=== PATIENT | male | born 1975 ===

== ENCOUNTER 2021-09-03 17:08 | Inpatient (IN) | payer OTHER | END 2021-09-05 11:50 | disposition home or self-care (01) | DRG 871 | LOC: ER 17:08 → PCU 17:09 → MEDS 09-04 13:21 | PROVIDERS: ADMIT Internal Medicine | DX: A40.1 Sepsis due to streptococcus, group B (principal); G92.8 Other toxic encephalopathy; J69.0 Pneumonitis due to inhalation of food and vomit; J96.01 Acute respiratory failure with hypoxia; J15.3 Pneumonia due to streptococcus, group B; B37.7 Candidal sepsis; Z20.822 Contact with and (suspected) exposure to COVID-19; F32.A Depression, unspecified; F41.9 Anxiety disorder, unspecified; G89.29 Other chronic pain; Z79.899 Other long term (current) drug therapy ==

== ENCOUNTER 2022-05-17 14:40 | Inpatient (IN) | payer OTHER ==
[~2022-05-17] VITALS: Ht 180.3 cm; Wt 97.0 kg
[~2022-05-17 14:40] MED LIST changes: -IPRAT-ALBUT 0.5-3 ML INH; -LAMO25 PO; -LEVO750 PO; -MELATONIN5 M1 PO; -NICO21TP TOP; -OLAN10 PO; -OMEP20ER PO
[2022-05-17] MEDS ORDERED: LAMO25 PO (15:54)
[2022-05-17] MEDS ORDERED: OLAN10 PO (15:54)
[2022-05-17] MEDS ORDERED: OMEP20ER PO (15:55)
--- NOTE | 2022-05-17 18:26 | NUR ---
DIRECT ADMIT FROM [facility] Patient admitted for Pneumonia, AOx4. Vitals stable, afebrile, sats stable on RA. Dyspenic, infrequent dry cough noted. Lungs dim at bases. IV ABX administred. Patient vapes daily, Nicotine patch administred. Patient reports hx of spinal fusions and back pain, tylenol given for MAYER & back pain. Patient reports severe reaction to chicken, reports N/V, swelling of throat. No other concerns at this time. Will continue plan of care.
[2022-05-18 05:04] LABS: BASOPHILS ABSOLUTE AUTO 0.11 K/mm3 (0.00-0.23); BASOPHILS PERCENT AUTO 1 % (0-2); EOSINOPHILS ABSOLUTE AUTO 0.41 K/mm3 (0.00-0.68); EOSINOPHILS PERCENT AUTO 3 % (0-6); Hemoglobin 12.5 g/dL (13.5-17.5); IMMATURE GRAN ABSOLUTE AUTO 0.05 K/mm3 (0.00-0.10); IMMATURE GRAN PERCENT AUTO 0 % (0-1); LYMPHOCYTES ABSOLUTE AUTO 2.46 K/mm3 (0.84-5.20); LYMPHOCYTES PERCENT AUTO 17 % (21-46); MONOCYTES ABSOLUTE AUTO 0.81 K/mm3 (0.16-1.47); MONOCYTES PERCENT AUTO 6 % (4-13); Mean Corpuscular HGB 28.2 pg (26.0-34.0); Mean Corpuscular HGB Conc 32.9 g/dL (31.5-36.5); Mean Corpuscular Volume 86 fL (80-100); Mean Platelet Volume 8.7 fL (9.1-12.4); NEUTROPHILS PERCENT AUTO 73 % (41-73); Platelet Count 303 K/mm3 (150-400); RDW Coefficient Variation 15.2 % (11.7-14.2); RDW Standard Deviation 47.7 fL (35.1-46.3); Red Blood Cell Count 4.43 M/mm3 (4.30-5.90); White Blood Cell Count 14.14 K/mm3 (4.00-11.30)
[2022-05-18 05:37] LABS: Albumin, Blood 2.5 g/dL (3.4-5.0); Albumin/Globulin Ratio 0.7 (0.8-1.8); Bilirubin, Total 0.4 mg/dL (0.1-1.0); Bun/Creatinine Ratio 8.3 (12.0-20.0); Creatinine, Blood 1.21 mg/dL (0.60-1.20); Globulin, Blood 3.5 g/dL (2.2-4.0); Magnesium, Blood 1.7 mg/dL (1.6-2.4); Potassium, Blood 3.4 mmol/L (3.5-5.5)
[2022-05-18] MEDS ORDERED: LEVO750 PO (15:55)
[2022-05-18] MEDS ORDERED: IPRAT-ALBUT 0.5-3 ML INH (15:55)
[2022-05-18] MEDS ORDERED: MELATONIN5 M1 PO (15:55)
[2022-05-18] MEDS ORDERED: NICO21TP TOP (15:56)
[2022-05-18] MEDS ORDERED: AMOCLA875 PO (15:56)
--- NOTE | 2022-05-18 18:04 | NUR ---
SHIFT SUMMARY PT A&OX4 AND COOPERATIVE OF CARE. PT HAD ECHO AND MRI TODAY. PT UNABLE TO HAVE BARRIUM TEST TODAY SO STAYING ANOTHER NIGHT TO HAVE TEST DONE TOMORROW. NO C/O PAIN. INDPENDENT IN ROOM. BED IN LOWEST POSITION AND CALL LIGHT IN REACH.
[2022-05-19 05:07] LABS: BASOPHILS ABSOLUTE AUTO 0.11 K/mm3 (0.00-0.23); BASOPHILS PERCENT AUTO 1 % (0-2); EOSINOPHILS ABSOLUTE AUTO 0.63 K/mm3 (0.00-0.68); EOSINOPHILS PERCENT AUTO 6 % (0-6); Hematocrit 40.4 % (37.0-53.0); Hemoglobin 13.3 g/dL (13.5-17.5); IMMATURE GRAN ABSOLUTE AUTO 0.07 K/mm3 (0.00-0.10); IMMATURE GRAN PERCENT AUTO 1 % (0-1); LYMPHOCYTES ABSOLUTE AUTO 2.59 K/mm3 (0.84-5.20); LYMPHOCYTES PERCENT AUTO 26 % (21-46); MONOCYTES ABSOLUTE AUTO 0.83 K/mm3 (0.16-1.47); MONOCYTES PERCENT AUTO 8 % (4-13); Mean Corpuscular HGB 27.9 pg (26.0-34.0); Mean Corpuscular HGB Conc 32.9 g/dL (31.5-36.5); Mean Corpuscular Volume 85 fL (80-100); Mean Platelet Volume 8.9 fL (9.1-12.4); NEUTROPHILS ABSOLUTE AUTO 5.81 K/mm3 (1.96-9.15); NEUTROPHILS PERCENT AUTO 58 % (41-73); Platelet Count 343 K/mm3 (150-400); RDW Coefficient Variation 15.1 % (11.7-14.2); RDW Standard Deviation 46.9 fL (35.1-46.3); Red Blood Cell Count 4.76 M/mm3 (4.30-5.90); White Blood Cell Count 10.04 K/mm3 (4.00-11.30)
[2022-05-19 05:35] LABS: Bun/Creatinine Ratio 8.1 (12.0-20.0); Creatinine, Blood 1.24 mg/dL (0.60-1.20); Potassium, Blood 3.9 mmol/L (3.5-5.5)
--- NOTE | 2022-05-19 16:12 | NUR ---
PT DISCHARGED HOME. DISCHARGE INSCTRUCTIONS AND EDUCATION MATERIAL EXPLAINED TO PT. LIST OF MEDICATIONS REVIEWED WITH PT AND . NO NEW QUESTIONS OR CONCERNS. IV DC'd. ALL BELONGINGS SENT HOME WITH PT. PT ABLE TO WALK WITH TO WAITING VEHICLE.
== END 2022-05-19 16:01 | disposition home or self-care (01) | DRG 871 ==
LOC: MEDS 14:40
PROVIDERS: Hospitalist; ADMIT Family Medicine
DX: A41.9 Sepsis, unspecified organism (principal); J18.9 Pneumonia, unspecified organism; J69.0 Pneumonitis due to inhalation of food and vomit; E87.20 Acidosis, unspecified; N17.9 Acute kidney failure, unspecified; F31.9 Bipolar disorder, unspecified; Z28.21 Immunization not carried out because of patient refusal; F41.9 Anxiety disorder, unspecified; R65.20 Severe sepsis without septic shock; K44.9 Diaphragmatic hernia without obstruction or gangrene; R13.10 Dysphagia, unspecified; R47.1 Dysarthria and anarthria; K21.9 Gastro-esophageal reflux disease without esophagitis; U07.0 Vaping-related disorder; Z98.1 Arthrodesis status; Z88.2 Allergy status to sulfonamides; Z88.8 Allergy status to other drugs, medicaments and biological substances; Z79.899 Other long term (current) drug therapy
CPT/HCPCS: 36415; 70553; 74220; 80048; 80053; 83605; 83735; 84100; 85025; 87449; 92610; 93306; 94640; 94664; 94760; A9270; A9579; J0692; J1200; J1650; J1956; J3475; J7050

== ENCOUNTER → 2022-05-17 | Outpatient (CLI) | payer OTHER ==
[~2022-05-17] MED LIST: ALPR.5 PO; AMOCLA875 PO; AZIT250 PO; BUSPIRONE HCL PO; CYCL10 PO; GUAI600T33 PO; HYDACE25S PR; IPRAT-ALBUT 0.5-3 ML INH; LAMO25 PO; LEVO750 PO; MELATONIN5 M1 PO; NICO21TP TOP; OLAN10 PO; OMEP20ER PO; Prozac20 MG PO; QUET25 PO; Seroquel Xr50 MG PO; TRAM50 PO
[2022-05-17 12:41] LABS: BASOPHILS ABSOLUTE AUTO 0.09 K/mm3 (0.00-0.23); BASOPHILS PERCENT AUTO 1 % (0-2); EOSINOPHILS ABSOLUTE AUTO 0.18 K/mm3 (0.00-0.68); EOSINOPHILS PERCENT AUTO 1 % (0-6); Hematocrit 45.3 % (37.0-53.0); Hemoglobin 14.6 g/dL (13.5-17.5); IMMATURE GRAN ABSOLUTE AUTO 0.07 K/mm3 (0.00-0.10); IMMATURE GRAN PERCENT AUTO 0 % (0-1); LYMPHOCYTES ABSOLUTE AUTO 0.95 K/mm3 (0.84-5.20); LYMPHOCYTES PERCENT AUTO 5 % (21-46); MONOCYTES ABSOLUTE AUTO 0.92 K/mm3 (0.16-1.47); MONOCYTES PERCENT AUTO 5 % (4-13); Mean Corpuscular HGB Conc 32.2 g/dL (31.5-36.5); Mean Corpuscular Volume 87 fL (80-100); Mean Platelet Volume 8.8 fL (9.1-12.4); NEUTROPHILS PERCENT AUTO 88 % (41-73); Platelet Count 403 K/mm3 (150-400); RDW Coefficient Variation 15.1 % (11.7-14.2); RDW Standard Deviation 47.9 fL (35.1-46.3); Red Blood Cell Count 5.22 M/mm3 (4.30-5.90); White Blood Cell Count 18.61 K/mm3 (4.00-11.30)
[2022-05-17 12:51] LABS: Albumin, Blood 3.2 g/dL (3.4-5.0); Albumin/Globulin Ratio 0.8 (0.8-1.8); Bilirubin, Total 0.3 mg/dL (0.1-1.0); Bun/Creatinine Ratio 6.2 (12.0-20.0); Calcium, Blood 8.7 mg/dL (8.5-10.1); Creatinine, Blood 1.62 mg/dL (0.60-1.20); Globulin, Blood 4.1 g/dL (2.2-4.0); Potassium, Blood 4.1 mmol/L (3.5-5.5); Total Protein, Blood 7.3 g/dL (6.4-8.2)
== END | disposition home or self-care (01) ==
LOC: LAB SHORT 12:32
PROVIDERS: Physician Assistant
DX: J18.9 Pneumonia, unspecified organism (principal)
CPT/HCPCS: 80053; 83605; 85025

== ENCOUNTER → 2023-02-11 | Outpatient (CLI) | payer OTHER ==
[~2023-02-11] MED LIST changes: +IPRAT-ALBUT 0.5-3 ML INH; +LAMO25 PO; +LEVO750 PO; +MELATONIN5 M1 PO; +NICO21TP TOP; +OLAN10 PO; +OMEP20ER PO
[2023-02-14 16:19] LABS: APTIMA MEDIA TYPE Urine; C. TRACHOMATIS BY TMA Negative (Negative); N. GONORRHOEAE BY TMA Negative (Negative); SPECIMEN SOURCE Urine; T. VAGINALIS BY TMA Negative (Negative)
== END ==
LOC: LAB SHORT 18:29 → LAB 18:29
PROVIDERS: Physician Assistant
DX: Z20.9 Contact with and (suspected) exposure to unspecified communicable disease (principal)
CPT/HCPCS: 87491; 87591; 87661

== ENCOUNTER 2024-08-13 19:34 | Observation (INO) | payer OTHER ==
[~2024-08-13] VITALS: Ht 180.3 cm; Wt 88.6 kg
[2024-08-13] MEDS ORDERED: Ketorolac Tromethamine 15mg Vial IV ONE (20:05)
[2024-08-13 21:04] LABS: BASOPHILS ABSOLUTE AUTO 0.07 K/mm3 (0.00-0.23); BASOPHILS PERCENT AUTO 1 % (0-2); EOSINOPHILS ABSOLUTE AUTO 0.34 K/mm3 (0.00-0.68); EOSINOPHILS PERCENT AUTO 3 % (0-6); Hematocrit 47.5 % (37.0-53.0); Hemoglobin 15.7 g/dL (13.5-17.5); IMMATURE GRAN ABSOLUTE AUTO 0.06 K/mm3 (0.00-0.10); IMMATURE GRAN PERCENT AUTO 1 % (0-1); LYMPHOCYTES ABSOLUTE AUTO 1.35 K/mm3 (0.84-5.20); LYMPHOCYTES PERCENT AUTO 11 % (21-46); MONOCYTES ABSOLUTE AUTO 0.87 K/mm3 (0.16-1.47); MONOCYTES PERCENT AUTO 7 % (4-13); Mean Corpuscular HGB Conc 33.1 g/dL (31.5-36.5); Mean Corpuscular Volume 88 fL (80-100); Mean Platelet Volume 8.5 fL (9.1-12.4); NEUTROPHILS ABSOLUTE AUTO 10.06 K/mm3 (1.96-9.15); NEUTROPHILS PERCENT AUTO 79 % (41-73); Platelet Count 436 K/mm3 (150-400); RDW Coefficient Variation 19.4 % (11.7-14.2); RDW Standard Deviation 57.7 fL (35.1-46.3); Red Blood Cell Count 5.42 M/mm3 (4.30-5.90); White Blood Cell Count 12.75 K/mm3 (4.00-11.30)
[2024-08-13 21:25] LABS: Albumin, Blood 2.7 g/dL (3.4-5.0); Albumin/Globulin Ratio 0.5 (0.8-1.8); Bilirubin, Total 1.1 mg/dL (0.1-1.0); Bun/Creatinine Ratio 9.6 (12.0-20.0); Calcium, Blood 8.9 mg/dL (8.5-10.1); Creatinine, Blood 1.14 mg/dL (0.60-1.20); Globulin, Blood 5.2 g/dL (2.2-4.0); Potassium, Blood 2.7 mmol/L (3.5-5.5); Total Protein, Blood 7.9 g/dL (6.4-8.2)
[2024-08-13 22:10] LABS: International Normalized Ratio 1.1
[2024-08-13] MEDS ORDERED: Potassium Chloride 20 MEQ TabCR PO ONE (22:10)
[2024-08-13] MEDS ORDERED: Potassium Chloride 40 MEQ in NS 250 ML IV ONE (22:10)
[2024-08-13] MEDS ORDERED: NS 1,000 ML IV SCH (22:35)
[2024-08-13] MEDS ORDERED: FentaNYL Citrate 50 MCG/ML 2 ML Injection IV PRN (23:20)
[2024-08-13] MEDS ORDERED: Heparin Sodium,Porcine/0.5 NS 500 ML IV SCH (23:45)
[2024-08-14 01:47] VITALS: BP 146/99
--- NOTE | 2024-08-14 02:27 | NUR ---
PATIENT IS A NEW ADMIT FROM THE ED. ALERT ORIENTED AND INDEPENDENT TRANSFER FROM [facility] TO BED. DENIES CHEST PAIN, SOB, AND N/V. ON ROOM AIR. IV K+ INFUSING FROM THE ED. IV HEPARIN STARTED @ 32mL/HR VERIFIED WITH 2ND RN AND MANAGED BY PHARMACY. LEFT CALF SWELLING WITH PEDAL PULSES FELT BILATERALLY AND MARKED WITH X IN ED. ORIENTED TO ROOM AND CALL LIGHT SYSTEM. FOOD PROVIDED PER DIET ORDER. WCTM.
[2024-08-14 04:43] LABS: Hematocrit 42.4 % (37.0-53.0); Mean Platelet Volume 8.6 fL (9.1-12.4); Platelet Count 366 K/mm3 (150-400)
[2024-08-14 04:44] VITALS: BP 122/77
[2024-08-14 05:23] LABS: Calcium, Blood 7.9 mg/dL (8.5-10.1); Potassium, Blood 3.4 mmol/L (3.5-5.5)
[2024-08-14 07:57] VITALS: BP 119/73
[2024-08-14] MEDS ORDERED: Dose Adjust by Pharmacy XX STA ×3 (09:08→23:35)
--- NOTE | 2024-08-14 09:50 | NUR ---
MD CONTACT NOTIFIED MD THAT PATIENT CONTINUES WITH PAIN, ONE MORE DOSE OF FENTANYL AVAILABLE AND NO ORDER FOR PAIN MEDICATIONS AFTER THAT. DR. MEDEROS STATES WILL COME SEE PATIENT SOON.
[2024-08-14] MEDS ORDERED: OxyCODONE HCL 5 MG TAB PO PRN (11:45)
[2024-08-14] MEDS ORDERED: Ondansetron HCl 2 MG / ML 2ML Vial IV PRN (12:15)
[2024-08-14] MEDS ORDERED: Acetaminophen 325 MG TABLET PO PRN (12:15)
[2024-08-14 15:02] VITALS: BP 107/61
[2024-08-14] MEDS ORDERED: Potassium Chloride 20 MEQ TabCR PO SCH (18:00)
--- NOTE | 2024-08-14 18:08 | NUR ---
SHIFT SUMMARY PATIENT A/OX4, ABLE TO MAKE NEEDS KNOWN. PLEASANT ADN COOPERATIVE WITH CARE. TELEMETRY IN PLACE, NO EVENTS NOTED, SINUS RHYTHYM. ECHOCARDIOGRAM PERFORMED TODAY. POTASSIUM REPLACED PER APR. HEPARIN GTT INCREASED X2 THIS SHIFT, RUNNING PER APR. PRN OXYCODONE ORDERED FOR PAIN TO LEFT LEG DVT PAIN, EFFECTIVE IN PAIN MANAGEMENT. PATIENT COMPLAINING OF NAUSEA, PRN ZOFRAN ADMINISTERED PER APR. PATIENT REMAINS INDEPENDENT IN ROOM. NO OTHER CONCERNS AT THIS TIME.
[2024-08-14 19:27] VITALS: BP 148/82
[2024-08-15 04:00] VITALS: BP 151/88
[2024-08-15 05:26] LABS: BASOPHILS ABSOLUTE AUTO 0.09 K/mm3 (0.00-0.23); BASOPHILS PERCENT AUTO 1 % (0-2); EOSINOPHILS ABSOLUTE AUTO 0.42 K/mm3 (0.00-0.68); EOSINOPHILS PERCENT AUTO 5 % (0-6); Hematocrit 39.5 % (37.0-53.0); Hemoglobin 12.9 g/dL (13.5-17.5); IMMATURE GRAN ABSOLUTE AUTO 0.08 K/mm3 (0.00-0.10); IMMATURE GRAN PERCENT AUTO 1 % (0-1); LYMPHOCYTES PERCENT AUTO 23 % (21-46); MONOCYTES ABSOLUTE AUTO 0.58 K/mm3 (0.16-1.47); MONOCYTES PERCENT AUTO 6 % (4-13); Mean Corpuscular HGB 29.3 pg (26.0-34.0); Mean Corpuscular HGB Conc 32.7 g/dL (31.5-36.5); Mean Corpuscular Volume 90 fL (80-100); Mean Platelet Volume 8.9 fL (9.1-12.4); NEUTROPHILS ABSOLUTE AUTO 5.92 K/mm3 (1.96-9.15); NEUTROPHILS PERCENT AUTO 64 % (41-73); Platelet Count 328 K/mm3 (150-400); RDW Coefficient Variation 18.5 % (11.7-14.2); White Blood Cell Count 9.19 K/mm3 (4.00-11.30)
[2024-08-15 05:44] LABS: Albumin, Blood 2.2 g/dL (3.4-5.0); Albumin/Globulin Ratio 0.6 (0.8-1.8); Bilirubin, Total 0.5 mg/dL (0.1-1.0); Bun/Creatinine Ratio 7.9 (12.0-20.0); Calcium, Blood 7.6 mg/dL (8.5-10.1); Creatinine, Blood 1.01 mg/dL (0.60-1.20); Globulin, Blood 3.9 g/dL (2.2-4.0); Total Protein, Blood 6.1 g/dL (6.4-8.2)
[2024-08-15] MEDS ORDERED: Dose Adjust by Pharmacy XX STA (06:16)
--- NOTE | 2024-08-15 06:36 | NUR ---
Shift Summary No acute changes. Given PRN oxycodone for L DVT pain and zofran x1 for nausea. Pt is on tele, no events, SR in the 80s. Pt was awake for most of the night. Pt AOx4, independent, VSS.
[2024-08-15 07:34] VITALS: BP 129/88
[2024-08-15] MEDS ORDERED: Potassium Chloride 20 MEQ TabCR PO SCH (11:00)
[2024-08-15] MEDS ORDERED: Apixaban 5 MG Tab PO SCH ×2 (11:00→12:06)
[2024-08-15 11:10] VITALS: BP 131/80
[2024-08-15] MEDS ORDERED: Apixaban 5 MG Tab PO ONE (12:05)
[2024-08-15] MEDS ORDERED: ELIQUIS5 M2 PO (13:57)
[2024-08-15] MEDS ORDERED: OXYC5 PO (13:58)
[2024-08-15] MEDS ORDERED: POTCHL20ER PO (13:58)
--- NOTE | 2024-08-15 14:50 | NUR ---
DISCHARGE NOTE PATIENT A/OX4, ABLE TO MAKE NEEDS KNOWN. PLEASANT AND COOPERATIVE WITH STAFF. INDEPENDENT IN ROOM HEPARIN GTT DISCONTINUED THIS MORNING AND PATITN STARTED ON ELIQUIS. OXYCODONE ADMINISTERED PER MAR FOR PAIN TO LEFT LEG DVT. TELEMETRY REMOVED AND IV REMOVED PRIOR TO DISCHARGE. PATIENT AGREEBALE TO DISCHARGE PLAN, MEDICATIONS DISCUSSED AND FOLLOW UP APPOINTMENTS DISCUSSED. NO OTHER CONCERNS. PATIENT ASSISTED TO FAMILY VEHICLE VIA WHEELCHAIR BY [facility] STAFF.
== END 2024-08-15 14:35 | disposition home or self-care (01) ==
LOC: ER 19:34 → MEDS 19:35
PROVIDERS: Emergency Medicine; Internal Medicine; Student in an Organized Health Care Education/Training Program; ADMIT Internal Medicine
DX: I82.4Z2 Acute embolism and thrombosis of unspecified deep veins of left distal lower extremity (principal); I26.99 Other pulmonary embolism without acute cor pulmonale; E87.6 Hypokalemia; F31.9 Bipolar disorder, unspecified; G47.33 Obstructive sleep apnea (adult) (pediatric); Z79.01 Long term (current) use of anticoagulants; Z79.899 Other long term (current) drug therapy
CPT/HCPCS: 36415; 71260; 80048; 80053; 83880; 84484; 85014; 85018; 85025; 85049; 85520; 85610; 85730; 93005; 93010; 93306; 93925; 93971; 96365; 96366; 96374-59; 96375; 96376; 99285-25; A9270; G0378; J1644; J1885; J2405; J3010; J3480; J7030; J7050; Q9967

== ENCOUNTER 2024-10-09 09:17 | Emergency (ER) | payer OTHER ==
[~2024-10-09] VITALS: Ht 180.3 cm; Wt 90.7 kg
[~2024-10-09 09:17] MED LIST changes: +ELIQUIS5 M2 PO; +OXYC5 PO; +POTCHL20ER PO
[2024-10-09 11:28] LABS: BASOPHILS ABSOLUTE AUTO 0.11 K/mm3 (0.00-0.23); BASOPHILS PERCENT AUTO 1 % (0-2); EOSINOPHILS ABSOLUTE AUTO 1.15 K/mm3 (0.00-0.68); EOSINOPHILS PERCENT AUTO 11 % (0-6); Hematocrit 42.4 % (37.0-53.0); Hemoglobin 13.8 g/dL (13.5-17.5); IMMATURE GRAN ABSOLUTE AUTO 0.06 K/mm3 (0.00-0.10); IMMATURE GRAN PERCENT AUTO 1 % (0-1); LYMPHOCYTES ABSOLUTE AUTO 1.81 K/mm3 (0.84-5.20); LYMPHOCYTES PERCENT AUTO 17 % (21-46); MONOCYTES ABSOLUTE AUTO 0.63 K/mm3 (0.16-1.47); MONOCYTES PERCENT AUTO 6 % (4-13); Mean Corpuscular HGB Conc 32.5 g/dL (31.5-36.5); Mean Corpuscular Volume 89 fL (80-100); NEUTROPHILS ABSOLUTE AUTO 6.74 K/mm3 (1.96-9.15); NEUTROPHILS PERCENT AUTO 64 % (41-73); NRBC ABSOLUTE 0.00 K/mm3 (0.00-0.02); NRBC Auto 0.0 /100 WBC (0.0-0.2); Platelet Count 464 K/mm3 (150-400); RDW Coefficient Variation 17.5 % (11.7-14.2); RDW Standard Deviation 57.4 fL (35.1-46.3)
[2024-10-09 11:37] LABS: Prothrombin Time Results 11.2 Sec (9.7-11.5)
[2024-10-09 12:21] LABS: Alanine Aminotransfer (ALT/SGP 30.0 U/L (12-78); Albumin, Blood 3.0 g/dL (3.4-5.0); Albumin/Globulin Ratio 0.6 (0.8-1.8); Anion Gap 7.0 mmol/L (3-11); Aspartate Aminotrans (AST/SGOT 26.0 U/L (12-37); Bilirubin, Total 0.7 mg/dL (0.1-1.0); Blood Urea Nitrogen 11.0 mg/dL (8-24); CO2, Blood 26.0 mmol/L (21-32); Calcium, Blood 8.2 mg/dL (8.5-10.1); Chloride, Blood 108.0 mmol/L (98-108); Creatinine, Blood 1.13 mg/dL (0.60-1.20); Globulin, Blood 5.0 g/dL (2.2-4.0); Glucose, Blood 103.0 mg/dL (70-99); Potassium, Blood 3.9 mmol/L (3.5-5.5); Sodium, Blood 137.0 mmol/L (136-145); Total Protein, Blood 8.0 g/dL (6.4-8.2)
[2024-10-09 12:30] VITALS: BP 150/106
[2024-10-09] MEDS ORDERED: OXAYDO5 M1 PO (15:21)
== END 2024-10-09 12:43 | disposition home or self-care (01) ==
LOC: ER 09:17
PROVIDERS: Student in an Organized Health Care Education/Training Program
DX: I82.512 Chronic embolism and thrombosis of left femoral vein (principal); I82.532 Chronic embolism and thrombosis of left popliteal vein; I82.542 Chronic embolism and thrombosis of left tibial vein; I82.552 Chronic embolism and thrombosis of left peroneal vein; Z79.01 Long term (current) use of anticoagulants; Z88.8 Allergy status to other drugs, medicaments and biological substances; Z79.02 Long term (current) use of antithrombotics/antiplatelets; Z79.899 Other long term (current) drug therapy
CPT/HCPCS: 80053; 85025; 85610; 85730; 93005; 93010; 93971; 99284-25; A9270

== ENCOUNTER 2024-11-01 01:05 | Emergency (ER) | payer OTHER ==
[~2024-11-01] VITALS: Ht 180.3 cm; Wt 99.8 kg
[~2024-11-01 01:05] MED LIST changes: +OXAYDO5 M1 PO
[2024-11-01 01:49] LABS: BASOPHILS ABSOLUTE AUTO 0.09 K/mm3 (0.00-0.23); BASOPHILS PERCENT AUTO 1 % (0-2); EOSINOPHILS ABSOLUTE AUTO 0.62 K/mm3 (0.00-0.68); EOSINOPHILS PERCENT AUTO 9 % (0-6); Hematocrit 40.7 % (37.0-53.0); Hemoglobin 13.1 g/dL (13.5-17.5); IMMATURE GRAN ABSOLUTE AUTO 0.05 K/mm3 (0.00-0.10); IMMATURE GRAN PERCENT AUTO 1 % (0-1); LYMPHOCYTES ABSOLUTE AUTO 1.49 K/mm3 (0.84-5.20); LYMPHOCYTES PERCENT AUTO 21 % (21-46); MONOCYTES ABSOLUTE AUTO 0.81 K/mm3 (0.16-1.47); MONOCYTES PERCENT AUTO 12 % (4-13); Mean Corpuscular HGB Conc 32.2 g/dL (31.5-36.5); Mean Corpuscular Volume 89 fL (80-100); NEUTROPHILS ABSOLUTE AUTO 3.90 K/mm3 (1.96-9.15); NEUTROPHILS PERCENT AUTO 56 % (41-73); NRBC ABSOLUTE 0.00 K/mm3 (0.00-0.02); NRBC Auto 0.0 /100 WBC (0.0-0.2); Platelet Count 210 K/mm3 (150-400); RDW Coefficient Variation 17.9 % (11.7-14.2); RDW Standard Deviation 58.2 fL (35.1-46.3)
[2024-11-01 01:55] LABS: Alanine Aminotransfer (ALT/SGP 90.0 U/L (12-78); Albumin, Blood 2.8 g/dL (3.4-5.0); Albumin/Globulin Ratio 0.7 (0.8-1.8); Anion Gap 9.0 mmol/L (3-11); Aspartate Aminotrans (AST/SGOT 115.0 U/L (12-37); Bilirubin, Total 0.5 mg/dL (0.1-1.0); Blood Urea Nitrogen 11.0 mg/dL (8-24); CO2, Blood 22.0 mmol/L (21-32); Calcium, Blood 7.6 mg/dL (8.5-10.1); Chloride, Blood 109.0 mmol/L (98-108); Creatinine, Blood 1.1 mg/dL (0.60-1.20); Globulin, Blood 4.0 g/dL (2.2-4.0); Glucose, Blood 112.0 mg/dL (70-99); Potassium, Blood 3.4 mmol/L (3.5-5.5); Sodium, Blood 137.0 mmol/L (136-145); Total Protein, Blood 6.8 g/dL (6.4-8.2)
[2024-11-01 06:00] VITALS: BP 139/94
== END 2024-11-01 07:20 | disposition home or self-care (01) ==
LOC: ER 01:05
PROVIDERS: Student in an Organized Health Care Education/Training Program
DX: I27.82 Chronic pulmonary embolism (principal); R06.02 Shortness of breath; Z79.899 Other long term (current) drug therapy; Z88.8 Allergy status to other drugs, medicaments and biological substances
CPT/HCPCS: 71046; 71260; 80053; 84484; 85025; 99285-25; A9270; Q9967

== ENCOUNTER 2024-11-06 09:28 | Observation (INO) | payer OTHER ==
[~2024-11-06] VITALS: Ht 177.8 cm; Wt 92.8 kg
[2024-11-06 11:21] LABS: BASOPHILS ABSOLUTE AUTO 0.09 K/mm3 (0.00-0.23); BASOPHILS PERCENT AUTO 1 % (0-2); EOSINOPHILS ABSOLUTE AUTO 0.64 K/mm3 (0.00-0.68); EOSINOPHILS PERCENT AUTO 8 % (0-6); Hematocrit 43.8 % (37.0-53.0); Hemoglobin 14.3 g/dL (13.5-17.5); IMMATURE GRAN ABSOLUTE AUTO 0.09 K/mm3 (0.00-0.10); IMMATURE GRAN PERCENT AUTO 1 % (0-1); LYMPHOCYTES ABSOLUTE AUTO 2.42 K/mm3 (0.84-5.20); LYMPHOCYTES PERCENT AUTO 29 % (21-46); MONOCYTES ABSOLUTE AUTO 0.61 K/mm3 (0.16-1.47); MONOCYTES PERCENT AUTO 7 % (4-13); Mean Corpuscular HGB Conc 32.6 g/dL (31.5-36.5); Mean Corpuscular Volume 87 fL (80-100); NEUTROPHILS ABSOLUTE AUTO 4.45 K/mm3 (1.96-9.15); NEUTROPHILS PERCENT AUTO 54 % (41-73); NRBC ABSOLUTE 0.00 K/mm3 (0.00-0.02); NRBC Auto 0.0 /100 WBC (0.0-0.2); Platelet Count 377 K/mm3 (150-400); RDW Coefficient Variation 18.3 % (11.7-14.2); RDW Standard Deviation 57.1 fL (35.1-46.3)
[2024-11-06 11:43] LABS: Alanine Aminotransfer (ALT/SGP 72.0 U/L (12-78); Albumin, Blood 3.2 g/dL (3.4-5.0); Albumin/Globulin Ratio 0.7 (0.8-1.8); Anion Gap 12.0 mmol/L (3-11); Aspartate Aminotrans (AST/SGOT 47.0 U/L (12-37); Bilirubin, Total 0.3 mg/dL (0.1-1.0); Blood Urea Nitrogen 7.0 mg/dL (8-24); CO2, Blood 21.0 mmol/L (21-32); Calcium, Blood 8.1 mg/dL (8.5-10.1); Chloride, Blood 107.0 mmol/L (98-108); Creatinine, Blood 1.02 mg/dL (0.60-1.20); Globulin, Blood 4.7 g/dL (2.2-4.0); Glucose, Blood 138.0 mg/dL (70-99); Potassium, Blood 3.8 mmol/L (3.5-5.5); Sodium, Blood 136.0 mmol/L (136-145); Total Protein, Blood 7.9 g/dL (6.4-8.2)
[2024-11-06 11:44] LABS: Prothrombin Time Results 10.5 Sec (9.7-11.5)
[2024-11-06] MEDS ORDERED: Heparin Sodium,Porcine/0.5 NS 500 ML IV SCH (11:50)
[2024-11-06] MEDS ORDERED: Heparin Sodium 5000 Units/ML 1ML MDV IV ONE (11:55)
[2024-11-06] MEDS ORDERED: FentaNYL Citrate 50 MCG/ML 2 ML Injection IV PRN (12:20)
[2024-11-06] MEDS ORDERED: FLU VACC TS2025-26(6MOS UP)/PF 45 MCG/0.5 ML SYRINGE IM ONE (12:20)
[2024-11-06] MEDS ORDERED: NS 1,000 ML IV ONE ×2 (13:19→13:23)
[2024-11-06] MEDS ORDERED: Heparin Sodium 1000 Units/ML 10ML MDV ONE (13:19)
[2024-11-06] MEDS ORDERED: NS 250 ML IV ONE (13:19)
[2024-11-06] MEDS ORDERED: Midazolam HCl 1MG / ML 2ML Vial ONE (13:55)
[2024-11-06] MEDS ORDERED: FentaNYL Citrate 50 MCG/ML 2 ML Injection ONE ×2 (13:55→14:28)
[2024-11-06] MEDS ORDERED: DiphenhydrAMINE HCl 50 MG/ML 1ML Vial ONE (14:50)
[2024-11-06] MEDS ORDERED: Ketorolac Tromethamine 30mg Vial ONE (15:34)
[2024-11-06 16:07] VITALS: BP 167/106
[2024-11-06 16:30] VITALS: BP 141/100
[2024-11-06 17:15] VITALS: BP 151/107
[2024-11-06 17:30] VITALS: BP 140/105
[2024-11-06 17:45] VITALS: BP 150/102
--- NOTE | 2024-11-06 18:42 | NUR ---
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 LEFT POPITEAL SITE WITH DRESSING C/D/I. CAP REFILL <3 SECONDS TO LEFT FOOT. HEPARIN DC'D AND CONFIRMED WITH DR. WILDER. CT SCAN COMPLETED. MEDICATED FOR PAIN PER EMAR. VSS. INDEPENDANT WITH URINAL AND REPOSITIONING. WILL CONTINUE TO MONITOR AND TREAT UNITL REPORT GIVEN TO NOC SHIFT RN AT CHANGE OF SHIFT.
[2024-11-06 21:29] VITALS: BP 127/93
[2024-11-07 00:31] VITALS: BP 132/96
[2024-11-07 04:43] VITALS: BP 137/86
[2024-11-07 05:45] LABS: BASOPHILS ABSOLUTE AUTO 0.09 K/mm3 (0.00-0.23); BASOPHILS PERCENT AUTO 1 % (0-2); EOSINOPHILS ABSOLUTE AUTO 0.70 K/mm3 (0.00-0.68); EOSINOPHILS PERCENT AUTO 9 % (0-6); Hematocrit 42.7 % (37.0-53.0); Hemoglobin 13.2 g/dL (13.5-17.5); IMMATURE GRAN ABSOLUTE AUTO 0.11 K/mm3 (0.00-0.10); IMMATURE GRAN PERCENT AUTO 1 % (0-1); LYMPHOCYTES ABSOLUTE AUTO 2.38 K/mm3 (0.84-5.20); LYMPHOCYTES PERCENT AUTO 30 % (21-46); MONOCYTES ABSOLUTE AUTO 0.73 K/mm3 (0.16-1.47); MONOCYTES PERCENT AUTO 9 % (4-13); Mean Corpuscular HGB Conc 30.9 g/dL (31.5-36.5); Mean Corpuscular Volume 91 fL (80-100); NEUTROPHILS ABSOLUTE AUTO 3.92 K/mm3 (1.96-9.15); NEUTROPHILS PERCENT AUTO 50 % (41-73); NRBC ABSOLUTE 0.00 K/mm3 (0.00-0.02); NRBC Auto 0.0 /100 WBC (0.0-0.2); Platelet Count 336 K/mm3 (150-400); RDW Coefficient Variation 18.4 % (11.7-14.2); RDW Standard Deviation 61.1 fL (35.1-46.3)
[2024-11-07 06:20] LABS: Anion Gap 9.0 mmol/L (3-11); Blood Urea Nitrogen 11.0 mg/dL (8-24); CO2, Blood 25.0 mmol/L (21-32); Calcium, Blood 8.3 mg/dL (8.5-10.1); Chloride, Blood 107.0 mmol/L (98-108); Creatinine, Blood 1.28 mg/dL (0.60-1.20); Glucose, Blood 96.0 mg/dL (70-99); Potassium, Blood 3.8 mmol/L (3.5-5.5); Sodium, Blood 137.0 mmol/L (136-145)
--- NOTE | 2024-11-07 06:20 | NUR ---
SHIFT SUMMARY PATIENT ALERT AND ORIENTED X4. MEDICATED PER EMAR FOR PAIN. ON ROOM AIR WITH SPO2 >90%, DENIES SHORTNESS OF BREATH. VITAL SIGNS STABLE. SWELLING IMPROVED OVERNIGHT IN PATIENT'S LEFT LEG, HOWEVER, HIS PAIN LEVEL IS STIL ELEVATED. NO BLEEDING OR SWELLING AT THE L POPLITEAL SITE. WILL CONTINUE TO MONITOR. CALL LIGHT WITHIN REACH.
--- NOTE | 2024-11-07 06:26 | NUR ---
SHIFT SUMMARY PATIENT ALERT AND ORIENTED X4. HAD NO COMPLAINTS OF PAIN. PATIENT IS DYSPNIC UPON EXERTION, ON HOME DOSE O2 OF 3 LITERS WHILE AWAKE. PATIENT WORE HER HOME BIPAP OVERNIGHT, TOLERATED WELL, NO DESATURATIONS NOTED. BLOOD PRESSURE STABLE. WILL CONTINUE TO MONITOR. CALL LIGHT WITHIN REACH.
[2024-11-07 08:36] VITALS: BP 136/83
[2024-11-07 12:22] VITALS: BP 132/98
== END 2024-11-07 12:59 | disposition home or self-care (01) ==
LOC: ER 09:28 → ERHOLD 09:29 → PCU 09:29
PROVIDERS: Emergency Medicine; ADMIT Family Medicine
DX: I82.512 Chronic embolism and thrombosis of left femoral vein (principal); N18.31 Chronic kidney disease, stage 3a; D63.1 Anemia in chronic kidney disease; F31.9 Bipolar disorder, unspecified; G47.30 Sleep apnea, unspecified; Z86.711 Personal history of pulmonary embolism; Z87.891 Personal history of nicotine dependence; Z79.01 Long term (current) use of anticoagulants
CPT/HCPCS: 36005; 36415; 70450; 75820; 76937; 80048; 80053; 85025; 85520; 85610; 85730; 93971; 96365; 96375; 96376; 99152; 99153; 99284-25; A9270; C1769; C1887; C1894; G0378; J1200; J1644; J1885; J2250; J3010; J7030; J7050; Q9967